=== PATIENT | male | born 1970 | race Caucasian/White ===

== ENCOUNTER 2021-02-17 17:26 | Emergency (ER) | payer OTHER, SELFPAY ==
--- NOTE | 2021-02-17 17:30 | DI.RAD_ITS ---
Exam(s) XR HAND RT COMPLETE EXAM: XR HAND RT COMPLETE CLINICAL HISTORY: Puncture wound, R/O Foreign body. TECHNIQUE: 2D digital imaging was performed. COMPARISON: No exams were available for comparison FINDINGS: There is no evidence of fracture nor dislocation. No radiopaque foreign body. No soft tissue calcif ications. Bone density normal. No osseous lesions IMPRESSION: No significant radiographic findings. DATA REPOSITORY: RADIATION DOSE DELIVERED:
[2021-02-17 17:32] VITALS: BP 135/90; PULSE 70; O2SAT 99
--- NOTE | 2021-02-17 17:44 | ED.GENADUL_ITS ---
Discharge Plan Disposition Patient Disposition: HOME Condition: Stable Discharge Details Clinical Impression: Puncture wound of hand, right Primary Care Provider: Unknown,Unknown ED Provider: Mine Bland Home Meds and New Rx's Prescriptions: New clindamycin HCl 150 mg capsule 450 mg PO TID 10 Days Qty: 90 RF: 0 Discharge Instructions Instructions: Puncture Wound (ED) Additional Instructions: X-rays show no evidence for foreign body. Please keep wound clean and dry clean it daily. Take the antibiotics as directed. 3 tablets 3 times a day for the next 10 days. Follow up with primary care provider in 3-5 days. Return to ED or be seen sooner if any worsening red streaks, swelling, drainage or signs of infection or concerns. Increase oral fluids. Please take Tylenol or Ibuprofen with food every 4-6 hours as needed for pain and swelling. Medical Decision Making Patient is a 50-year-old male presents to the ER with chief complaint of right palm puncture wound which occurred prior to arrival with a screwdriver. Patient reports he was working on a [place] when he accidentally punctured his right palm with a screwdriver. He is not up-to-date on his tetanus vaccination. She does have full range of motion to his hand and fingers. Distal CMS is intact. Bleeding is controlled upon arrival. He is unsure if there is a possible foreign body he does note there is some metal shards noted on the end of the screwdriver. Is a partial-thickness puncture wound is not through and through. No other complaints or associated symptoms. XRAY Right hand ordered to rule out FB, TDAP booster, Clindamycin 450mg ordered due to PCN allergy. Imaging protocol: XR Right hand. Views: 3 or more views. COMPARISON: No relevant prior studies available. FINDINGS: Bones/joints: No acute fracture or subluxation. Soft tissues: No radiopaque foreign body is seen. IMPRESSION: No radiopaque foreign body is seen Patient discharged with clindamycin antibiotic prescription instructed on strict return instructions and follow-up care. Patient discharged in hemodynamically stable condition. HPI General Mode of arrival: ambulatory . Date/Time Provider Initiated Documentation: 02/17/21 17:28 . Limitations to Documentation: no limitations . Information obtained by: patient and RN notes reviewed . HPI Narrative: Patient is a 50-year-old male presents to the ER with chief complaint of right palm puncture wound which occurred prior to arrival with a screwdriver. 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 He is not up-to-date on his tetanus vaccination. She does have full range of motion to his hand and fingers. Distal CMS is intact. Bleeding is controlled upon arrival. He is unsure if there is a possible foreign body he does note there is some metal shards noted on the end of the screwdriver. Is a partial-thickness puncture wound is not through and through. No other complaints or associated symptoms. Related Data Home Medications Medication Instructions Recorded Confirmed clindamycin HCl 450 mg PO TID 10 Days #90 cap 02/17/21 Previous Rx's Medication Instructions Recorded clindamycin HCl 450 mg PO TID 10 Days #90 cap 02/17/21 Allergies Allergy/AdvReac Type Severity Reaction Status Date / Time Penicillins Allergy Unverified 02/17/21 17:35 General Stated Complaint: Laceration KHANH: 4 Review of Systems All systems reviewed & are unremarkable except as noted in HPI and below Musculoskeletal Musculoskeletal: Reports as per HPI (Right hand puncture wound) [facility] Active Problem List (Updated 02/17/21 @ 18:29 by Mine Bland) Puncture wound of hand, right (Acute) Social History Smoking/Tobacco Use Status: Never Smoking risk assessment performed?: Yes Alcohol Intake: current Alcohol Intake frequency: holidays/special occasions only Drug use: Never Substance use type: does not use Do you feel safe at home: Yes Do you feel safe in your relationship?: Yes Exam Extrem General: full ROM Right upper extremity: hand Details: normal capillary refill, neurosensory exam normal, tendon exam normal, vascular exam and puncture wound (See diagram) Hand/finger images: 1. Puncture wound, Bleeding controlled Course Vital Signs Vital signs: Vital Signs Pulse 70 02/17/21 17:32 Blood Pressure 135/90 02/17/21 17:32 Pulse Oximetry 99 02/17/21 17:32 Temperature Source Temporal Artery Scan 02/17/21 17:32 Pulse 70 02/17/21 17:32 Respiratory Effort Non-Labored 02/17/21 17:33 Blood Pressure 135/90 02/17/21 17:32 Blood Pressure Position Sitting 02/17/21 17:32 Pulse Oximetry 99 02/17/21 17:32 Oxygen Delivery Method Room Air 02/17/21 17:32 Oxygen Flow Rate 0 02/17/21 17:32 Pain Level 2 02/17/21 17:36
[2021-02-17] MEDS: Clindamycin 150 MG CAP 450 MG PO (18:02)
--- NOTE | 2021-02-17 18:26 | DI.VRAD_ITS ---
PROCEDURE INFORMATION: Exam: XR Right Hand Exam date and time: 02/17/2021 17:41 Age: 50 years old Clinical indication: Other: Puncture wound, R/O foreign body TECHNIQUE: Imaging protocol: XR Right hand. Views: 3 or more views. COMPARISON: No relevant prior studies available. FINDINGS: Bones/joints: No acute fracture or subluxation. Soft tissues: No radiopaque foreign body is seen. IMPRESSION: No radiopaque foreign body is seen. Dictated and Authenticated by: Jerri Holman MD. Ordering:SIMONA Blount MD
== END 2021-02-17 18:45 | disposition home or self-care (01) ==
PROVIDERS: Emergency Provider Registered Nurse Emergency
DX: S61.431A Puncture wound without foreign body of right hand, initial encounter (principal); W27.0XXA Contact with workbench tool, initial encounter
CPT/HCPCS: 90471; 99284; 73130; 99283